=== PATIENT | female | born 1965 | race Caucasian/White ===

== ENCOUNTER → 2017-12-29 13:06 | Outpatient (CLI) | payer OTHER, SELFPAY ==
[2017-12-29 14:13] LABS: Hematocrit 40.1 % (37-47); Hemoglobin 12.4 g/dl (12.0-15.0); Mean Corp Hgb Conc 30.9 g/gl (32-36); Mean Corpuscular Hgb 24.6 pg (27.0-32.0); Mean Corpuscular Volume 79.6 fL (81-99); Mean Platelet Vol. 10.6 fl (6.2-12.0); Platelet Count 267 K/mm3 (150-450); RBC Distribution Width CV 16.1 % (11.6-14.6); RBC Distribution Width SD 46.1 fl (35.1-43.9); Red Blood Count 5.04 M/mm3 (4.2-5.4); Scan Indicated on CBC? Y/N NO; White Blood Count 5.1 K/mm3 (4.4-11.0)
== END ==
PROVIDERS: Visit Provider Obstetrics & Gynecology
DX: N92.0 Excessive and frequent menstruation with regular cycle (principal); R10.2 Pelvic and perineal pain
CPT/HCPCS: 36415; 83001; 85027

== ENCOUNTER → 2018-05-13 11:44 | Outpatient (CLI) | payer OTHER, SELFPAY ==
--- NOTE | 2018-05-13 11:51 | BI_ITS ---
MAMMOGRAPHY - BILATERAL SCREENING 3-D JAMES SYNTHESIS REASON FOR EXAM: Female, 52 years old. Bilateral Screening 3-D tomosynthesis PERTINENT HISTORY: No significant family history. TECHNIQUE: 2-D mammograms and 3-D James synthesis of the breast (s) were performed. CAD was performed. COMPARISON: None. FINDINGS: The breast composition is of heterogeneous fibroglandular tissue which make it difficult to exclude tiny masses. The tomosynthesis showed evidence of well-demarcated lesion measures 2.7 x 1.5 cm in the left breast around 1:00 o'clock, it has a halo and consistent with most likely a cyst however to confirm this an ultrasound to rule out solid lesion. No obvious stellate lesion, microcalcifications, skin thickening or nipple retraction. BI/SCREENING MAMM (CAD), BILAT IMPRESSION: Well-demarcated density with halo in the left breast around 1:00 o'clock, 3 cm and most likely represents a cyst or fibroadenoma that needs further confirmation by ultrasound study. . Electronically Signed: Lorenzo Servin, at 13:34 EST Tel , Service support ,
== END ==
PROVIDERS: Family Provider Family Medicine; PCP Family Medicine; Visit Provider Obstetrics & Gynecology
DX: Z12.31 Encounter for screening mammogram for malignant neoplasm of breast (principal)
CPT/HCPCS: 77063; 77067

== ENCOUNTER → 2018-05-19 10:43 | Outpatient (CLI) | payer OTHER, SELFPAY ==
--- NOTE | 2018-05-19 10:50 | US_ITS ---
STUDY: ULTRASOUND BREAST - LEFT REASON FOR EXAM: Female, 52 years old. Abnormal screening mammogram. TECHNIQUE: Axial and longitudinal images of the LEFT breast were performed with a high resolution ultrasound transducer. COMPARISON: Comparison is made with prior mammogram dated May 13, 2018 and prior sonogram of the left breast dated January 04, 2016. FINDINGS: LEFT Breast: Multiple small cysts are seen in the breast. The largest is at the 1:00 position the breast at 2 cm from nipple. This measures 1.2 cm x 0.9 cm x 0.6 cm. A similar appearing cyst measuring 1.1 cm x 0.8 cm x 0.7 cm is seen adjacent to previously mentioned cyst. US/Breast Limited Unilateral IMPRESSION: 2 small adjacent cysts as described. Routine mammographic follow-up is recommended. ASSESSMENT CATEGORY: BIRADS Category 2: Benign. A letter regarding these results will be sent to the patient by the facility within 30 days. Electronically Signed: Santi Dumont MD at 13:30 EST Tel [phone], Service support ,
== END ==
PROVIDERS: Family Provider Family Medicine; PCP Family Medicine; Visit Provider Obstetrics & Gynecology
DX: R92.8 Other abnormal and inconclusive findings on diagnostic imaging of breast (principal); N63.20 Unspecified lump in the left breast, unspecified quadrant
CPT/HCPCS: 76642

== ENCOUNTER → 2018-09-07 13:57 | Outpatient (CLI) | payer OTHER, SELFPAY ==
[2018-09-10 13:28] LABS: HPV Reflexed? NOT INDICATED
== END ==
PROVIDERS: Family Provider Family Medicine; PCP Family Medicine; Referring Provider Obstetrics & Gynecology; Visit Provider Obstetrics & Gynecology
DX: Z12.4 Encounter for screening for malignant neoplasm of cervix (principal)
CPT/HCPCS: 88175; G0145

== ENCOUNTER → 2022-10-01 | Outpatient (CLI) | payer OTHER, SELFPAY ==
[2022-10-01 18:21] LABS: Absolute Lymphocyte Count 1.07 X10^3/uL (0.83-4.51); Absolute Neutrophil Count 3.4 X10^3/uL (2.0-7.7); Basophil# 0.04 X10^3/uL; Basophil% 0.8 % (0-1); Eosinophil# 0.17 X10^3/uL; Eosinophils% 3.4 % (0-5); Hematocrit 44.2 % (37-47); Hemoglobin 14.3 g/dL (12.0-15.0); Lymphocyte # 1.07 X10^3/ul (0.83-4.51); Lymphocyte % 21.1 % (19-41); Mean Corp Hgb Conc 32.4 g/dL (32-36); Mean Corpuscular Hgb 28.5 pg (27.0-32.0); Mean Corpuscular Volume 88.2 fL (81-99); Mean Platelet Vol. 10.1 fl (6.2-12.0); Monocyte# 0.41 X10^3/uL; Monocyte% 8.1 % (0-10); NRBC Flagged by Analyzer 0 % (0-5); Neutrophil # 3.35 X10^3/uL (2.7-7.7); Neutrophil % 66.2 % (47-70); Platelet Count 243 K/mm3 (150-450); RBC Distribution Width SD 48.6 fl (35.1-43.9); Red Blood Count 5.01 M/mm3 (4.2-5.4); White Blood Count 5.1 K/mm3 (4.4-11.0)
[2022-10-01 19:41] LABS: ALB/GLOB Ratio 0.9 RATIO (0.9-2.4); AST(SGOT) 19 U/L (15-37); Alanine Aminotransfer ALT/SGPT 29 U/L (13-56); Albumin, Serum 3.6 g/dL (3.2-5.0); Alkaline Phosphatase 93 U/L (45-117); Anion Gap 10 (5-15); BUN 13 mg/dL (7-18); BUN/Creat Ratio 10.8 RATIO (10-20); Calcium,Total 8.5 mg/dL (8.5-10.1); Chloride 104 mmol/L (98-107); EST Glomerular Filtration Rate 49 mL/min (>60); Est Glom Filt Rate - Afr Amer 60 mL/min (>60); Follicle Stimulating Hormone 38.7 mIU/mL; Glucose 127 mg/dL (74-106); Luteinizing Hormone 31.5 mIU/mL; Protein, Total 7.6 g/dL (6.4-8.2); Sodium Level 139 mmol/L (136-145); T4 Free Direct 0.94 ng/dL (0.76-1.46)
[2022-10-08 02:07] LABS: Estrogen, Total, Serum 332 pg/mL (40-244)
== END | disposition home or self-care (01) ==
LOC: BFHLAB 14:00
PROVIDERS: PCP Family Medicine; Referring Provider Nurse Practitioner Family; Visit Provider Nurse Practitioner Family
DX: N95.0 Postmenopausal bleeding (principal); E03.9 Hypothyroidism, unspecified; I10 Essential (primary) hypertension
CPT/HCPCS: 36415; 80053; 82672; 83001; 83002; 84144; 84439; 84443; 85025

== ENCOUNTER → 2022-10-16 | Outpatient (CLI) | payer OTHER, SELFPAY ==
[2022-10-22 13:08] LABS: HPV APTIMA, High Risk Negative (Negative)
== END | disposition home or self-care (01) ==
LOC: LABSPEC 14:41
PROVIDERS: PCP Family Medicine; Visit Provider Nurse Practitioner Women's Health
DX: N93.9 Abnormal uterine and vaginal bleeding, unspecified (principal)
CPT/HCPCS: 87624; 88175; G0145

== ENCOUNTER → 2024-05-09 | Outpatient (CLI) | payer OTHER, SELFPAY ==
[2024-05-09 15:19] LABS: Absolute Lymphocyte Count 1.34 X10^3/uL (0.83-4.51); Absolute Neutrophil Count 3.1 X10^3/uL (2.0-7.7); Basophil# 0.03 X10^3/uL; Basophil% 0.6 % (0-1); Eosinophils% 3.9 % (0-5); Hematocrit 45.4 % (37-47); Hemoglobin 14.6 g/dL (12.0-15.0); Lymphocyte # 1.34 X10^3/ul (0.83-4.51); Lymphocyte % 25.9 % (19-41); Mean Corp Hgb Conc 32.2 g/dL (32-36); Mean Corpuscular Hgb 28.7 pg (27.0-32.0); Mean Corpuscular Volume 89.4 fL (81-99); Mean Platelet Vol. 10.3 fl (6.2-12.0); Monocyte# 0.46 X10^3/uL; Monocyte% 8.9 % (0-10); NRBC Flagged by Analyzer 0 % (0-5); Neutrophil # 3.13 X10^3/uL (2.7-7.7); Neutrophil % 60.5 % (47-70); Platelet Count 246 K/mm3 (150-450); RBC Distribution Width CV 13.8 % (11.6-14.6); RBC Distribution Width SD 44.8 fl (35.1-43.9); Red Blood Count 5.08 M/mm3 (4.2-5.4); White Blood Count 5.2 K/mm3 (4.4-11.0)
[2024-05-09 15:49] LABS: Hemoglobin A1c 5.5 % (3.8-5.6)
[2024-05-09 16:30] LABS: Vitamin B12 1784 pg/mL (211-911); Vitamin D,25 Hydroxy 29.8 ng/mL
[2024-05-09 18:19] LABS: ALB/GLOB Ratio 1.1 RATIO (0.9-2.4); AST(SGOT) 27 U/L (15-37); Alanine Aminotransfer ALT/SGPT 48 U/L (13-56); Albumin, Serum 3.8 g/dL (3.2-5.0); Alkaline Phosphatase 90 U/L (45-117); Anion Gap 4 (5-15); BUN 12 mg/dL (7-18); BUN/Creat Ratio 11.4 RATIO (10-20); Calcium,Total 9.2 mg/dL (8.5-10.1); Chloride 109 mmol/L (98-107); Cholesterol 260 mg/dL (200); Creatinine, Serum 1.05 mg/dL (0.55-1.02); EST Glomerular Filtration Rate 57 mL/min (>60); Est Glom Filt Rate - Afr Amer 69 mL/min (>60); Ferritin 40 ng/mL (8-252); Globulin 3.5 g/dL (2.2-4.2); Glucose 94 mg/dL (74-106); High Density Lipoprotein 46 mg/dL; Iron 72 ug/dL (50-170); Iron Binding Capacity,Total 333 ug/dL (250-450); LDH 249 U/L (84-246); Magnesium 2.2 mg/dL (1.6-2.6); PERCENT IRON SATURATION 21.6 % (15.0-55.0); Phosphorus 4.1 mg/dL (2.5-4.9); Protein, Total 7.3 g/dL (6.4-8.2); Sodium Level 140 mmol/L (136-145); Total Bilirubin < 0.10 mg/dL (0.20-1.00); Triglycerides 170 mg/dL; Very Low Density Lipoprotein 34 mg/dL (5-40)
[2024-05-15 12:07] LABS: Copper, Serum or Plasma 105 ug/dL (80-158); Insulin Level 54.9 uIU/mL (2.6-24.9); VITAMIN B6 28.6 ug/L (3.4-65.2); Vitamin A, Retinol 50.6 ug/dL (20.1-62.0); Vitamin B1, Thiamine 251.6 nmol/L (66.5-200.0); Zinc, Plasma or Serum 65 ug/dL (44-115)
== END | disposition home or self-care (01) ==
PROVIDERS: PCP Nurse Practitioner Family; Referring Provider Nurse Practitioner Family; Visit Provider Nurse Practitioner Family
DX: I10 Essential (primary) hypertension (principal); E03.9 Hypothyroidism, unspecified; E56.9 Vitamin deficiency, unspecified
CPT/HCPCS: 36415; 80053; 80061; 82306; 82525; 82607; 82728; 82746; 83036; 83525; 83540; 83550; 83615; 83735; 84100; 84207; 84425; 84443; 84590; 84630; 85025